=== PATIENT | female | born 1990 | race African-American/Black ===

== ENCOUNTER 2017-06-08 09:28 | Emergency (ER) | payer OTHER ==
[~2017-06-08] VITALS: Ht 170.2 cm; Wt 61.2 kg
[~2017-06-08 09:28] MED LIST: ALPRAZOLAM0.25 MG ORAL; NKM
--- NOTE | 2017-06-08 09:42 | Emergency Room Report ---
History of Present Illness General Chief Complaint: Pelvic Pain Source: Patient Present Illness HPI The patient complains of 2 to 3 months of suprapubic and epigastric discomfort. She's lost her appetite and lost weight. Denies any melena or vomiting. Her last period was June 01 normal for her. test was negative last week. Last month she was told she had an ovarian cyst however this was done based on pain during pelvic exam not by CT or ultrasound. She does not take any medication for pain. The pain occasionally is severe. Last night it was a 9/ 10 for 2 minutes right lower quadrant and dropped her to her knees. No fever, NVD, change bowels. She is under stress at her job (which is where she lives). Single mom, 2 kids. 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 Last Menstrual Period: 06/01/17 Reviewed Nursing Documentation: PMH: Agreed, PSxH: Agreed Nursing Documentation-PMH Past Medical History: No Stated History Review of Systems All Other Systems: negative except mentioned in HPI Physical Exam Vital Signs Date Time Temp Pulse Resp B/P (MAP) Pulse Ox O2 Delivery O2 Flow Rate FiO2 06/08/17 09:29 98.1 76 14 110/71 100 Room Air Sp02 EP Interpretation: reviewed, normal General Appearance: well appearing, no apparent distress, GCS 15 Head: normocephalic Eyes: bilateral eye normal inspection, bilateral eye PERRL ENT: moist mucus membranes Neck: supple Respiratory: lungs clear, normal breath sounds Cardiovascular #1: regular rate, rhythm Cardiovascular #2: 2+ radial (R) Gastrointestinal: normal inspection, normal bowel sounds, soft, no mass, non- distended, no guarding, no rebound, tenderness - suprapubic L>R - also some epigastric tenderness (less than LLQ), scaphoid Genitourinary: no CVA tenderness, deferred - for ultrasound Musculoskeletal: back normal, gait/station normal, normal range of motion Neurologic: alert, oriented x3, grossly normal Psychiatric: mood/affect normal Skin: normal inspection, warm/dry, other - tattoos Medical Decision Making Diagnostic Impression: Primary Impression: Left ovarian cyst Additional Impressions: Epigastric pain Stress ER Course Patient presents with abdominal pain. The 2 components one is upper limits lower. The lower abdominal pains differential is ovarian torsion, ovarian cyst , if he starts, PID, UTI. The upper is suggestive for gallbladder disease, gastritis, peptic ulcer disease and GERD. She does say that she stress. Evaluation of the wrist IV labs ultrasound pelvic and abdomen. The test needs to be performed. The patient be treated with Zofran and Tylenol. Suspicion for is low. Neg preg. Normal WBC and H/H. Ultrasound abd, no stones. U/S pelvis - L ovarian cyst. Improved with analgesia. Patient stable for outpatient observation and treatment. Last Vital Signs Date Time Temp Pulse Resp B/P (MAP) Pulse Ox O2 Delivery O2 Flow Rate FiO2 06/08/17 12:52 98.1 75 16 111/[address]/MRI/US Diagnostic Results CT/MRI/US Diagnostic Results : Imaging Test Ordered: pelvic and abd Impression ABD = negative L ovarian cyst Findings: Endometrium is normal in appearance measuring between one and 2 mm. Uterus is 8 x 6 x 4 cm. Both ovaries are essentially normal with Doppler evidence of blood flow. Few follicles are demonstrated. There is a dominant follicle the left ovary with eccentric retracting clot measuring 2 CM. Right ovary 3.4 x 2.9 x 2.4 cm. Left ovary 4 x 3.3 x 2.5 cm Impression: A hemorrhagic left ovarian cyst 2 cm in size. Negative exam otherwise Last Vital Signs Date Time Temp Pulse Resp B/P (MAP) Pulse Ox O2 Delivery O2 Flow Rate FiO2 06/08/17 14:05 98.1 73 16 110/70 100 Room Air Status: improved Disposition: HOME, SELF-CARE Condition: Improved Scripts Acetaminophen With Codeine (T#3) (TYLENOL #3 TAB*) Y Tab 1 TAB ORAL Q6H Y for For Pain, #10 TAB Prov: Javon Harper M.D. 06/08/17 Famotidine (PEPCID) 20 Mg Tablet 20 MG ORAL DAILY, #30 TAB 1 Refill Prov: Javon Harper M.D. 06/08/17 Javon Harper M.D. Jun 08, 2017 09:42
[2017-06-08 10:28] LABS: APPEARANCE,URINE CLEAR; BASOPHILS % (AUTO) 0.7 % (0.0-2.0); EOSINOPHILS % (AUTO) 2.1 % (0.0-3.0); KETONES,URINE NEGATIVE (NEGATIVE); LEUKOCYTE ESTERASE ,URINE 1+ (NEGATIVE); MEAN CORPUSCULAR HEMOGLOBIN 31.9 PG (27.0-31.0); MEAN CORPUSCULAR HGB CONC 33.3 G/DL (32.0-36.0); MEAN CORPUSCULAR VOLUME 96 FL (80-99); MEAN PLATELET VOLUME 6.6 FL (6.5-10.1); NEUTROPHILS % (AUTO) 61.2 % (45.0-75.0); NITRITE,URINE NEGATIVE (NEGATIVE); PH,URINE 6.5 (4.5-8.0); PLATELET COUNT 235 K/UL (150-450); PROTEIN,URINE NEGATIVE (NEGATIVE); RED BLOOD COUNT 5.14 M/UL (4.20-5.40); UROBILINOGEN,URINE NORMAL MG/DL (0.0-1.0); WHITE BLOOD COUNT 4.9 K/UL (4.8-10.8)
[2017-06-08 10:41] LABS: BACTERIA,URINE FEW /HPF; MUCUS,URINE MODERATE /LPF (NONE/OCC); SQUAMOUS EPITHELIAL CELL,UR FEW /LPF (NONE/OCC)
[2017-06-08 10:59] LABS: ALANINE AMINOTRANSFERASE 14 U/L (3-33); ALBUMIN/GLOBULIN RATIO 1.6 (1.0-2.7); ANION GAP 12 (5-15); ASPARTATE AMINO TRANSFERASE 17 U/L (5-40); CARBON DIOXIDE 29 mEQ/L (20-30); CHLORIDE 98 mEQ/L (98-107); CREATININE 0.8 mg/dL (0.5-0.9); GLOMERULAR FILTRATION RATE > 60 mL/min (>60); HEMOLYSIS 6; LIPASE 28 U/L (< 60); SODIUM 139 mEQ/L (135-145); TOTAL PROTEIN 8.4 g/dL (6.6-8.7)
--- NOTE | 2017-06-08 11:42 | Diagnostic Imaging Report ---
Indication:Abdominal pain Technique: Grayscale and duplex Doppler imaging of the abdomen performed. Comparison: None Findings: The liver, demonstrated part of the pancreas, gallbladder, aorta and IVC, both kidneys, spleen appear unremarkable. There is no biliary ductal dilatation identified. Doppler evaluation of the main portal vein shows patency. There is no ascites. No hydronephrosis seen. CBD is 3.3 mm. Impression: Negative abdominal ultrasound.
[2017-06-08 12:52] VITALS: BP 111/72
[2017-06-08] MEDS ORDERED: ACETAMINOPHEN-1 EAC1 ORAL (13:54)
[2017-06-08] MEDS ORDERED: PEPCID20 MG ORAL (13:54)
[2017-06-08 14:05] VITALS: BP 110/70
--- NOTE | 2017-06-08 14:22 | Diagnostic Imaging Report ---
Indication:Lower abdominal and pelvic pain Technique: Grayscale and duplex Doppler imaging of the pelvis performed utilizing a transabdominal scan and endovaginal scan. Comparison: None Findings: Endometrium is normal in appearance measuring between one and 2 mm. Uterus is 8 x 6 x 4 cm. Both ovaries are essentially normal with Doppler evidence of blood flow. Few follicles are demonstrated. There is a dominant follicle the left ovary with eccentric retracting clot measuring 2 CM. Right ovary 3.4 x 2.9 x 2.4 cm. Left ovary 4 x 3.3 x 2.5 cm Impression: A hemorrhagic left ovarian cyst 2 cm in size. Negative exam otherwise
== END 2017-06-08 16:24 | disposition home or self-care (01) ==
LOC: EMR 09:51
DX: N83.202 Unspecified ovarian cyst, left side (principal); R10.13 Epigastric pain; F43.9 Reaction to severe stress, unspecified
CPT/HCPCS: 36415; 76700; 76856; 80053; 81003; 81025; 83690; 85025; 96361; 96374; 99284; J2405

== ENCOUNTER 2017-06-29 13:05 | Emergency (ER) | payer OTHER ==
[~2017-06-29] VITALS: Ht 170.2 cm; Wt 61.2 kg
[~2017-06-29 13:05] MED LIST changes: +ACETAMINOPHEN-1 EAC1 ORAL; +PEPCID20 MG ORAL
[2017-06-29 13:30] VITALS: BP 98/60
[2017-06-29] MEDS ORDERED: CORTISPORIN EAR10 ML LEFT EAR (14:08)
[2017-06-29] MEDS ORDERED: IBUPROFEN600 MG ORAL (14:08)
[2017-06-29 14:09] VITALS: BP 98/60
--- NOTE | 2017-06-29 23:17 | Emergency Room Report ---
History of Present Illness General Chief Complaint: Pain Source: Patient Present Illness HPI The patient is a 26 old female presenting for left ear pain which began 2 days prior. Pain is a 8/10 dull ache and is worse with touch. She denies radiating pain. She denies any other symptoms including N, V, F, chills, cough Allergies: Coded Allergies: No Known Allergies (Unverified , 07/10/16) Patient History Past Medical History: see triage record Pertinent Family History: none Last Menstrual Period: 06/25 Now: No Reviewed Nursing Documentation: PMH: Agreed, PSxH: Agreed Nursing Documentation-PMH Past Medical History: No Stated History Review of Systems All Other Systems: negative except mentioned in HPI Physical Exam Vital Signs Date Time Temp Pulse Resp B/P (MAP) Pulse Ox O2 Delivery O2 Flow Rate FiO2 06/29/17 13:22 98.6 83 16 98/60 99 Room Air Sp02 EP Interpretation: reviewed, normal General Appearance: no apparent distress, alert, GCS 15, non-toxic Head: normocephalic, atraumatic Eyes: bilateral eye normal inspection, bilateral eye PERRL ENT: hearing grossly normal, normal pharynx, no angioedema, normal voice, uvula midline, other - L ear TTP to tragus and EAC erythema, edema Neck: full range of motion, supple/symm/no masses Respiratory: chest non-tender, lungs clear, normal breath sounds, speaking full sentences Cardiovascular #1: regular rate, rhythm, no edema Neurologic: alert, oriented x3, responsive, motor strength/tone normal, sensory intact, speech normal Psychiatric: judgement/insight normal, memory normal, mood/affect normal, no suicidal/homicidal ideation Skin: normal color, no rash, warm/dry, well hydrated Medical Decision Making PA Attestation Dr. Haddad is my supervising physician. Patient management was discussed with my supervising physician Diagnostic Impression: Primary Impression: Otitis externa of left ear Qualified Codes: H60.502 - Unspecified acute noninfective otitis externa, left ear ER Course The patient is a 26 old female presenting for left ear pain Differential diagnosis include but not limited to otitis externa, otitis media, mastoiditis, sinusitis, pharyngitis Physical exam: Vitals within normal limits. No apparent distress. HEENT: Left ear external auditory canal is erythematous and edematous. White discharge is noted. Tympanic membrane is intact. No bulging. There is cervical lymphadenopathy. Otherwise exam is unremarkable The patient will be discharged home with a prescription for Cortisporin Last Vital Signs Date Time Temp Pulse Resp B/P (MAP) Pulse Ox O2 Delivery O2 Flow Rate FiO2 06/29/17 14:09 98.6 72 16 98/60 99 Room Air Status: improved Disposition: HOME, SELF-CARE Condition: Improved Scripts Neomycin/Polymyxin B Sulf/Hc* (CORTISPORIN EAR SOLUTION*) 10 Ml Solution 4 DROP LEFT EAR QID, #10 ML 0 Refills Prov: MAGDIEL FERNANDES 06/29/17 Ibuprofen* (MOTRIN*) 600 Mg Tablet 600 MG ORAL Q8H Y for For Pain, #30 TAB 0 Refills Prov: MAGDIEL FERNANDES 06/29/17 Referrals: NON PHYSICIAN (PCP) Patient Instructions: Otitis Externa Additional Instructions: I discussed my findings with the patient. All questions and concerns have been answered. Treatment and medication compliance have been addressed. I advised the patient that they need to follow up with PMD in 3-5 days. Return to ED if pain remains or worsens, cough worsens or remains, you notice blood in your sputum, you notice wheezing, you experience a fever, or if needed for any reason. Patient verbalized understanding of discharge instructions. MAGDIEL FERNANDES Jun 29, 2017 23:17
== END 2017-06-29 15:00 | disposition home or self-care (01) ==
LOC: EMR 14:25
DX: H60.92 Unspecified otitis externa, left ear (principal)
CPT/HCPCS: 99283

== ENCOUNTER 2017-10-29 15:23 | Emergency (ER) | payer OTHER ==
[~2017-10-29] VITALS: Ht 170.2 cm; Wt 65.8 kg
[~2017-10-29 15:23] MED LIST changes: +CORTISPORIN EAR10 ML LEFT EAR; +IBUPROFEN600 MG ORAL
[2017-10-29] MEDS ORDERED: Ketorolac 30mg Inj IM ONE (16:45)
[2017-10-29 17:21] LABS: APPEARANCE,URINE CLEAR; BILIRUBIN, URINE NEGATIVE (NEGATIVE); COLOR,URINE PALE YELLOW; GLUCOSE, URINE (UA) NEGATIVE (NEGATIVE); KETONES,URINE 3+ (NEGATIVE); LEUKOCYTE ESTERASE ,URINE 1+ (NEGATIVE); NITRITE,URINE NEGATIVE (NEGATIVE); PH,URINE 6 (4.5-8.0); PROTEIN,URINE NEGATIVE (NEGATIVE); UROBILINOGEN,URINE NORMAL MG/DL (0.0-1.0)
[2017-10-29 18:54] VITALS: BP 110/73
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
[2017-10-29] MEDS ORDERED: TYLENOL EXTRA500 MG ORAL (20:24)
[2017-10-29 20:32] VITALS: BP 112/72
--- NOTE | 2017-10-30 09:23 | Diagnostic Imaging Report ---
Indication: Pain Technique: 3 views of the left shoulder Comparison: None Findings: No acute fractures or dislocations. Joint spaces are preserved. Impression: Negative
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
--- NOTE | 2017-10-30 10:54 | Diagnostic Imaging Report ---
Indication: Abdominal pain Technique: Collins-scale and duplex images of the upper abdomen were obtained Comparison: 06-26 Findings: Gallbladder is unremarkable, without stones, wall thickening, nor pericholecystic fluid. Sonographic Boland's sign is negative. Common bile duct measures 3 mm in diameter. No intrahepatic biliary ductal dilatation. Liver demonstrates normal echogenicity, no focal abnormality. Portal vein and hepatic veins are patent. Pancreas is obscured by bowel gas. Spleen is unremarkable. Left kidney measures 11 cm in length. Right kidney measures 11.1 cm length. Both kidneys demonstrate normal echogenicity. There is no hydronephrosis. No focal abnormality . Non-aneurysmal abdominal aorta . There is no significant interim change Impression: Negative Note inability to visualize the pancreas
== END 2017-10-29 20:30 | disposition home or self-care (01) ==
LOC: EMR 17:28
DX: S00.531A Contusion of lip, initial encounter (principal); V43.52XA Car driver injured in collision with other type car in traffic accident, initial encounter; Y92.410 Unspecified street and highway as the place of occurrence of the external cause; M25.511 Pain in right shoulder; R10.814 Left lower quadrant abdominal tenderness; R10.813 Right lower quadrant abdominal tenderness; M54.2 Cervicalgia; Z33.1 Pregnant state, incidental
CPT/HCPCS: 36415; 72125; 73030; 76700; 81001; 81025; 84702; 96372; 99284; J1885

== ENCOUNTER 2018-05-31 11:28 | Emergency (ER) | payer MEDICAID, OTHER ==
[~2018-05-31] VITALS: Ht 170.2 cm; Wt 70.3 kg
[~2018-05-31 11:28] MED LIST changes: +TYLENOL EXTRA500 MG ORAL
[2018-05-31 12:16] VITALS: BP 104/66
[2018-05-31 12:17] VITALS: BP 104/66
--- NOTE | 2018-05-31 15:49 | Emergency Room Report ---
History of Present Illness General Chief Complaint: Earache Source: Patient Present Illness HPI Patient's 27-year-old female presented after increased right-sided earache. Patient had been having increased pain to the right ear with intermittent in nature. She reports having sharp pain. This is associated with a decreased hearing and oral fullness. She denied any dizziness. The patient is in the third trimester . She denies any change in movements or any vaginal bleeding or discharge. She has not been having any leakage of fluid. She denies any fever. She denies any cough or difficulty breathing. Allergies: Coded Allergies: No Known Allergies (Unverified , 05/31/18) Patient History Past Medical History: see triage record Now: Yes : 3 Para: 3 Reviewed Nursing Documentation: PMH: Agreed; PSxH: Agreed Nursing Documentation-PM Past Medical History: No Stated History Review of Systems All Other Systems: negative except mentioned in HPI Physical Exam Vital Signs Date Time Temp Pulse Resp B/P (MAP) Pulse Ox O2 Delivery O2 Flow Rate FiO2 05/31/18 11:37 98.1 95 16 104/66 97 Room Air 98.1 General Appearance: well appearing, no apparent distress, alert, GCS 15 Head: normocephalic, atraumatic ENT: hearing grossly normal, normal voice, other - tm right with slight fluid, no bulging or erythema Neck: full range of motion, supple Respiratory: no respiratory distress, speaking full sentences Cardiovascular #1: normal inspection Gastrointestinal: soft, other - gravid uterus Musculoskeletal: normal inspection Neurologic: normal inspection, alert, oriented x3, responsive, fund controller III-XII nml as tested, normal gait Psychiatric: normal inspection, judgement/insight normal, mood/affect normal Skin: no rash Medical Decision Making Diagnostic Impression: Primary Impression: Eustachian tube dysfunction ER Course Patient presented for ear pain. Differential diagnosis included was not limited to otitis media, malignant otitis externa, foreign body, cellulitis, mastoiditis, carotid dissection, myocardial infarction among others. Patient has a benign exam and does not appear to require any further imaging or laboratory testing at this time. The patient's earache appears to be related to eustachian tube dysfunction. Patient was advised to follow-up with her primary care physician she declined prescription due to . Patient is advised follow-up with her ADMINISTRATIVE SUPPORT SPECIALIST and primary care physician for recheck. . Patient is advised to return if any worsening condition or if any changes in status that are concerning. This report is dictated with [employer] wet primer powder blender software which may occasionally lead to discrepancies related to use of this software. Last Vital Signs Date Time Temp Pulse Resp B/P (MAP) Pulse Ox O2 Delivery O2 Flow Rate FiO2 05/31/18 12:17 98.1 69 16 104/66 97 Room Air 98.1 Status: improved Disposition: HOME, SELF-CARE Condition: Stable Referrals: NOT CHOSEN IPA/,REFERRING (PCP) Patient Instructions: Vinnie Fuller MD May 31, 2018 15:49
== END 2018-05-31 12:19 | disposition home or self-care (01) ==
LOC: EMR 11:50
DX: O26.893 Other specified pregnancy related conditions, third trimester (principal); H69.91 Unspecified Eustachian tube disorder, right ear; Z3A.00 Weeks of gestation of pregnancy not specified
CPT/HCPCS: 99282

== ENCOUNTER 2020-08-02 18:18 | Emergency (ER) | payer MEDICAID ==
[~2020-08-02] VITALS: Ht 170.2 cm; Wt 70.3 kg
[2020-08-02 18:31] VITALS: BP 129/75
--- NOTE | 2020-08-02 18:50 | Emergency Room Report ---
History of Present Illness General Chief Complaint: Pain Source: Patient Present Illness HPI 30-year-old female presents to the emergency department complaining of 9 out of 10 severity progressive left-sided headache x2 days in addition to left ear pain. Patient reports her symptoms began as a headache and progressed to ear pain and tenderness with hypersensitivity to the left ear since this morning. Patient reports she has been unable to even brush her hair as gentle palpation of her hair elicits pain. She denies history of migraines she denies neck pain or stiffness. She denies fevers or chills, nausea or vomiting or recent head injury. Patient denies ear discharge. She denies or urinary symptoms. She denies loss of gross motor movements/weakness. Denies any significant past medical history. Patient reports that she is able to touch her left ear but it feels "distant "she reports no changes in hearing. She denies any visual changes denies photophobia. She reports she took both Tylenol and Motrin in an attempt to relieve her headache which was unsuccessful. Allergies: Coded Allergies: No Known Allergies (Unverified , 05/31/18) COVID-19 Screening Contact w/high risk pt: No Experienced COVID-19 symptoms?: No COVID-19 Testing performed APPLICATION DEVELOPMENT DIRECTOR: No Patient History Past Medical History: see triage record Past Surgical History: none Pertinent Family History: none Last Menstrual Period: 06/27/20 Now: No Reviewed Nursing Documentation: PMH: Agreed; PSxH: Agreed Nursing Documentation-PMH Past Medical History: No Stated History Review of Systems All Other Systems: negative except mentioned in HPI Physical Exam Vital Signs Date Time Temp Pulse Resp B/P (MAP) Pulse Ox O2 Delivery O2 Flow Rate FiO2 08/02/20 18:19 98.4 89 19 130/77 (94) 98 Room Air Sp02 EP Interpretation: reviewed, normal General Appearance: no apparent distress, alert, GCS 15, non-toxic Head: normocephalic, atraumatic, other - Pt. with severe allodynia on left side of head, TTP to light touch on left side of scalp and preauricular area. No erythema or swelling. Eyes: bilateral eye normal inspection, bilateral eye PERRL ENT: hearing grossly normal, normal pharynx, normal voice, TMs + canals normal, uvula midline Neck: full range of motion, no meningismus, no bony tend Respiratory: chest non-tender, lungs clear, normal breath sounds, no wheezing, speaking full sentences Cardiovascular #1: normal inspection, regular rate, rhythm Genitourinary: no CVA tenderness Musculoskeletal: back normal, normal range of motion, gait/station normal, non- tender Neurologic: alert, motor strength/tone normal, DTRs symmetric, oriented x3, sensory intact, cerebellar normal, responsive, speech normal, normal gait, grossly normal, no focal defects, other - Pt. with severe allodynia on left side of head, TTP to light touch on left side of scalp and preauricular area. No erythema or swelling. Psychiatric: judgement/insight normal Skin: no rash, normal color Lymphatic: no adenopathy Medical Decision Making PA Attestation Dr. Montenegro Is my supervising Physician whom patient management has been discussed with. Diagnostic Impression: Primary Impression: Allodynia Additional Impression: Headache Qualified Codes: R51.9 - Headache, unspecified ER Course 30-year-old female presents to the emergency department complaining of 9 out of 10 severity progressive left-sided headache x2 days in addition to left ear pain. Patient reports her symptoms began as a headache and progressed to ear pain and tenderness with hypersensitivity to the left ear since this morning. Patient reports she has been unable to even brush her hair as gentle palpation of her hair elicits pain. She denies history of migraines she denies neck pain or stiffness. She denies fevers or chills, nausea or vomiting or recent head injury. Patient denies ear discharge. She denies or urinary symptoms. She denies loss of gross motor movements/weakness. Denies any significant past medical history. Patient reports that she is able to touch her left ear but it feels "distant "she reports no changes in hearing. She denies any visual changes denies photophobia. She reports she took both Tylenol and Motrin in an attempt to relieve her headache which was unsuccessful. Ddx considered but are not limited to migraine, SAH, Pseudomotor Cerebri, Mass lesion, Cluster CARRION, Tension CARRION, Post lumbar puncture CARRION, meningitis, otitis media/externa, mastoiditis just to name a few. Vital signs: are WNL, pt. is afebrile H&PE are most consistent with possible new onset migraine syndrome. No focal neurological deficits. No meningismus ORDERS: - UA:WNL -Hcg: negative -CT Head no Contrast: unremarkable ED INTERVENTIONS: DISCHARGE: At this time pt. is stable for d/c to home. Will provide printed patient care instructions, and any necessary prescriptions. Care plan and follow up instructions have been discussed with the patient prior to discharge. Labs Test 08/02/20 18:41 Urine Color Pale yellow Urine Appearance Clear Urine pH 7 (4.5-8.0) Urine Specific [place] 1.005 (1.005-1.035) Urine Protein Negative (NEGATIVE) Urine Glucose (UA) Negative (NEGATIVE) Urine Ketones Negative (NEGATIVE) Urine Blood Negative (NEGATIVE) Urine Nitrite Negative (NEGATIVE) Urine Bilirubin Negative (NEGATIVE) Urine Urobilinogen Normal MG/DL (0.0-1.0) Urine Leukocyte Esterase Negative (NEGATIVE) Urine HCG, Qualitative Negative (NEGATIVE) CT/MRI/US Diagnostic Results CT/MRI/US Diagnostic Results : Imaging Test Ordered: CT Head No contrast Impression " Unremarkable ." --Per official radiology report- Please see report for sp ecific details. Last Vital Signs Date Time Temp Pulse Resp B/P (MAP) Pulse Ox O2 Delivery O2 Flow Rate FiO2 08/02/20 18:31 98.4 79 18 129/75 97 Room Air Disposition: HOME, SELF-CARE Condition: Stable Scripts Acetamin/Butalbital/Caffeine* (FIORICET*) 1 Ea Tab 1 TAB ORAL Q6H, #12 TAB 0 Refills Prov: Honey Calvillo 08/02/20 Referrals: MARLEN CAR MD (PCP) Patient Instructions: Migraine Headache, [id number] Additional Instructions: Take medications as directed. Do not drink alcohol, drive or operate heavy machinery while taking Fioricet tablets for migraine as this may impair your judgment. Follow up with a Primary Care Provider in 3-5 days For a referral to have NEUROLOGIST Evaluation, even if your symptoms have resolved. --Please review list of primary care clinics, if you do not already have a primary care provider Return sooner to ED if new symptoms occur, or current symptoms become worse. - Please note that this Emergency Department Report was dictated using [employer] technology software, occasionally this can lead to erroneous entry secondary to interpretation by the dictation equipment. Honey Calvillo Aug 02, 2020 18:50
[2020-08-02] MEDS ORDERED: Ketorolac 30mg Inj IM ONE (19:00)
[2020-08-02] MEDS ORDERED: DiphenhydrAMINE 50mg/ml Inj IM ONE (19:00)
[2020-08-02] MEDS ORDERED: Metoclopramide 10mg/2ml Inj IM ONE ×2 (19:00→19:15)
[2020-08-02 19:37] LABS: APPEARANCE,URINE CLEAR; BILIRUBIN, URINE NEGATIVE (NEGATIVE); COLOR,URINE PALE YELLOW; GLUCOSE, URINE (UA) NEGATIVE (NEGATIVE); KETONES,URINE NEGATIVE (NEGATIVE); LEUKOCYTE ESTERASE ,URINE NEGATIVE (NEGATIVE); NITRITE,URINE NEGATIVE (NEGATIVE); PH,URINE 7 (4.5-8.0); PROTEIN,URINE NEGATIVE (NEGATIVE); UROBILINOGEN,URINE NORMAL MG/DL (0.0-1.0)
--- NOTE | 2020-08-02 20:01 | Diagnostic Imaging Report ---
EXAM: CT Head Without Intravenous Contrast CLINICAL HISTORY: PAIN TECHNIQUE: Axial computed tomography images of the head/brain without intravenous contrast. CTDI is 53.4 mGy and DLP is 1098.9 mGy-cm. One or more of the following dose reduction techniques were used: automated exposure control, adjustment of the mA and/or kV according to patient size, use of iterative reconstruction technique. COMPARISON: No relevant prior studies available. FINDINGS: Brain: Unremarkable. No hemorrhage. No significant white matter disease. No edema. Ventricles: Unremarkable. No ventriculomegaly. Bones/joints: Unremarkable. No acute fracture. Soft tissues: Unremarkable. Sinuses: Unremarkable as visualized. No acute sinusitis. Mastoid air cells: Unremarkable as visualized. No mastoid effusion. Other findings: Imaging mildly degraded by motion. IMPRESSION: No evidence of acute intracranial abnormality on study mildly degraded by motion.
[2020-08-02] MEDS ORDERED: FIORICET1 EA ORAL (20:09)
[2020-08-02 20:15] VITALS: BP 125/70
== END 2020-08-02 20:15 | disposition home or self-care (01) ==
LOC: EMR 18:32
DX: R20.3 Hyperesthesia (principal); R51.9 Headache, unspecified
CPT/HCPCS: 70450; 81003; 81025; 96372; J1885; J2765; Z7502; 99284